=== PATIENT | female | born 1965 | race Caucasian/White ===

== ENCOUNTER 2017-11-07 18:11 | Emergency (ER) | payer BC, MEDICAID ==
--- NOTE | 2017-11-07 18:45 | Emergency Department Record ---
History of Present Illness - General Chief Complaint: Chest Pain Stated Complaint: CHEST PAIN Time Seen by Provider: 11/07/17 18:39 Source: Patient, RN notes reviewed - History of Present Illness Initial Comments: 2-3 days of intermittent chest pain and it is substernal and last for 10 minutes and it comes and goes and no diaphoresis and no indigestion. grabbing kind of pain. Patient presented via ambulance and given asa chewable 4 81 mg aspirin by EMS and nitrosublingual times one with some relief. history of spontaneous pneumo, Pain worse with palpation on the chest wall. chronic back pain and takes lyrica and percocet and flexeril for that. MD Complaint: Chest pain - Related Data Home Medications Medication Instructions Recorded Confirmed Last Taken Alendronate Sodium [Fosamax] 70 mg PO WEEKLY 11/07/17 11/07/17 Unknown Cyclobenzaprine HCl [Flexeril] 10 mg PO TID 11/07/17 11/07/17 Unknown Escitalopram Oxalate [Lexapro] 10 mg PO DAILY 11/07/17 11/07/17 Unknown Etodolac [Lodine] 400 mg PO DAILY 11/07/17 11/07/17 Unknown Meloxicam [Mobic] 15 mg PO DAILY 11/07/17 11/07/17 Unknown Montelukast Sodium [Singulair] 10 mg PO QHS 11/07/17 11/07/17 Unknown Oxybutynin Chloride [Ditropan] 5 mg PO DAILY 11/07/17 11/07/17 Unknown Oxycodone HCl/Acetaminophen 1 tab PO Q6H PRN 11/07/17 11/07/17 Unknown [Percocet 10mg/325mg] Pregabalin [Lyrica] 75 mg PO DAILY 11/07/17 11/07/17 Unknown Quetiapine Fumarate [Seroquel] 50 mg PO QHS 11/07/17 11/07/17 Unknown Allergies Allergy/AdvReac Type Severity Reaction Status Date / Time amoxicillin Allergy PT UNSURE Verified 11/07/17 19:06 OF REACTION diazepam [From Valium] Allergy PT UNSURE Verified 11/07/17 19:06 OF REACTION gabapentin [From Neurontin] Allergy PT UNSURE Verified 11/07/17 19:06 OF REACTION Penicillins Allergy PT UNSURE Verified 11/07/17 19:06 OF REACTION sulfamethoxazole Allergy PT UNSURE Verified 11/07/17 19:06 [From Bactrim] OF REACTION trimethoprim [From Bactrim] Allergy PT UNSURE Verified 11/07/17 19:06 OF REACTION Review of Systems Reviewed: No additional complaints except as noted below Constitutional: Reports: As per HPI. Denies: Chills, Fever, Malaise, Night sweats, Weakness, Weight change Eyes: Reports: As per HPI. Denies: Eye discharge, Eye pain, Photophobia, Vision change ENT: Reports: As per HPI. Denies: Congestion, Dental pain, Ear pain, Epistaxis , Hearing loss, Throat pain Respiratory: Reports: As per HPI. Denies: Cough, Dyspnea, Hemoptysis, Stridor, Wheezes Cardiovascular: Reports: As per HPI, Chest pain. Denies: Arrhythmia, Dyspnea on exertion, Edema, Murmurs, Orthopnea, Palpitations, Paroxysmal nocturnal dyspnea, Rheumatic Fever, Syncope Endocrine: Reports: As per HPI. Denies: Fatigue, Heat or cold intolerance, Polydipsia, Polyuria Gastrointestinal: Reports: As per HPI. Denies: Abdominal pain, Constipation, Diarrhea, Hematemesis, Hematochezia, Melena, Nausea, Vomiting Genitourinary: Reports: As per HPI. Denies: Abnormal menses, Discharge, Dyspareunia, Dysuria, Frequency, Hematuria, Incontinence, Retention, Urgency Musculoskeletal: Reports: As per HPI. Denies: Arthralgia, Back pain, Gout, Joint swelling, Myalgia, Neck pain Skin: Reports: As per HPI. Denies: Bruising, Change in color, Change in hair/ nails, Lesions, Pruritus, Rash Neurological: Reports: As per HPI. Denies: Abnormal gait, Confusion, Headache, Numbness, Paresthesias, Seizure, Tingling, Tremors, Vertigo, Weakness Psychiatric: Reports: As per HPI. Denies: Anxiety, Auditory hallucinations, Depression, Homicidal thoughts, Suicidal thoughts, Visual hallucinations Hematological/Lymphatic: Reports: As per HPI. Denies: Anemia, Blood Clots, Easy bleeding, Easy bruising, Swollen glands Physical Exam - General General Appearance: Alert, Oriented x3, Cooperative, No acute distress - Head Head exam: Normal inspection - Eye Eye exam: Normal appearance, PERRL Pupils: Normal accommodation - ENT ENT exam: Normal exam, Mucous membranes moist, Normal external ear exam, Normal orophraynx, TM's normal bilaterally Ear exam: Normal external inspection. negative: External canal tenderness Nasal Exam: Normal inspection. negative: Discharge, Sinus tenderness Mouth exam: Normal external inspection, Tongue normal Teeth exam: Normal inspection. negative: Dental caries Throat exam: Normal inspection. negative: Tonsillar erythema, Tonsillar exudate - Neck Neck exam: Normal inspection, Full ROM. negative: Tenderness - Respiratory Respiratory exam: Normal lung sounds bilaterally. negative: Respiratory distress - Cardiovascular Cardiovascular Exam: Regular rate, Normal rhythm, Normal heart sounds - GI/Abdominal GI/Abdominal exam: Soft, Normal bowel sounds. negative: Tenderness - Rectal Rectal exam: Deferred - exam: Deferred - Extremities Extremities exam: Normal inspection, Full ROM, Normal capillary refill. negative: Tenderness - Back Back exam: Reports: Normal inspection, Full ROM. Denies: Muscle spasm, Rash noted, Tenderness - Neurological Neurological exam: Alert, Normal gait, Oriented X3, Reflexes normal - Psychiatric Psychiatric exam: Normal affect, Normal mood - Skin Skin exam: Dry, Intact, Normal color, Warm Medical Decision Making - Data Complexity MDM Data: Labs Ordered and/or Reviewed, X-Ray Ordered and/or Reviewed (COPD no acute changes), EKG Ordered and/or Reviewed (no acute changes) - Lab Data Result diagrams: 11/07/17 18:20 11/07/17 18:20 Disposition Clinical Impression: Chest wall pain, Costochondritis, acute Chest pain Qualifiers: Chest pain type: unspecified Qualified Code(s): R07.9 - Chest pain, unspecified Disposition: Home, Self-Care Condition: (1) Good Instructions: Costochondritis (ED) Additional Instructions: follow up with family in 2 to 5 days heat to chest three times a day increase percocet to four times a day and she has this already and flexeril three times a day and she has that too. return if worse Forms: Patient Portal Access Time of Disposition: 20:59 Quality - Quality Measures Quality Measures: N/A - Blood Pressure Screening Does Patient Have Any of the Following: No Blood Pressure Classification: Normal BP Reading Systolic Measurement: 107 Diastolic Measurement: 70 Screening for High Blood Pressure: < Normal BP, F/U Not Required > [G8783]
[2017-11-07] MEDS ORDERED: LORAZEPAM 2 MG/ML VIAL IV ONE (18:56)
[2017-11-07] MEDS ORDERED: MAGNESIUM HYDROXIDE/AL HYDROX 30 ML, LIDOCAINE VISC 2% 200 MG PO ONE ×2 (18:56)
[2017-11-07 19:06] LABS: BASO % 0.1 % (0-6); EOS % 1.2 % (0-6); HEMOGLOBIN 11.4 gm/dl (11.6-16.0); LYMPH % 40.6 % (16-45); MEAN CELL VOLUME 96.4 fl (81-97); MEAN CORPUSCULAR HEMOGLOBIN 31.4 pg (27-33); MEAN CORPUSCULAR HGB CONC 32.6 g/dl (32-36); MEAN PLATELET VOLUME 9.8 fl (7.4-10.4); MONO % 6.1 % (0-9); PLATELET COUNT 230 K/uL (130-400); RED BLOOD COUNT 3.63 M/uL (3.80-5.40); RED CELL DISTRIBUTION WIDTH 14.2 % (11.5-14.5); WHITE BLOOD COUNT W/O DIFF 8.4 K/uL (4.2-12.2)
[2017-11-07 19:18] LABS: BLOOD UREA NITROGEN 16 mg/dL (6-20); CREATININE 0.9 mg/dL (0.5-0.9); EST GLOMERULAR FILTRATION RATE > 60 mL/min; GLUCOSE,RANDOM 87 mg/dL (74-109)
[2017-11-07 19:22] LABS: CKMB 1.6 ng/mL (<3.77)
[2017-11-07 19:23] LABS: PARTIAL THROMBOPLASTIN TIME 22.9 SECONDS (24.5-39.1)
[2017-11-07] MEDS ORDERED: KETOROLAC 30 MG/ML VIAL IVP ONE (19:50)
--- NOTE | 2017-11-08 20:24 | RADIOLOGY REPORT ---
EXAM: CHEST 2 VIEWS HISTORY: DIFFICULTY IN BREATHING. TECHNIQUE: Frontal and lateral views of the chest were performed. FINDINGS: Heart size is normal. Lungs are hyperinflated. Post-op surgical change right lung apex. No superimposed infiltrate or pleural effusion. IMPRESSION: HYPERINFLATED LUNGS. POST-OP SURGICAL CHANGE IN THE RIGHT LUNG APEX. NO INFILTRATE OR PLEURAL EFFUSION. JOB NUMBER: [id number] MTDD
== END 2017-11-07 21:24 | disposition home or self-care (01) ==
LOC: ER 18:11 → EDBD 18:11 → ER 21:24
DX: M94.0 Chondrocostal junction syndrome [Tietze] (principal); R07.89 Other chest pain; M79.601 Pain in right arm; R51 Headache; J44.9 Chronic obstructive pulmonary disease, unspecified; F17.210 Nicotine dependence, cigarettes, uncomplicated
CPT/HCPCS: 71046; 80048; 82553; 84484; 85025; 85379; 85730; 93005; 93010; 96374; 96375; 99284; J1885

== ENCOUNTER 2019-04-04 20:57 | Emergency (ER) | payer BC, MEDICAID ==
[2019-04-04] MEDS ORDERED: AZITHROMYCIN 500 MG TABLET PO ONE (21:19)
[2019-04-04] MEDS ORDERED: PREDNISONE 20 MG TAB PO ONE (21:19)
--- NOTE | 2019-04-04 21:20 | Emergency Department Record ---
History of Present Illness - General Chief Complaint: Cough Stated Complaint: COUGH Time Seen by Provider: 04/04/19 21:01 Source: Patient Mode of Arrival: Ambulatory Limitations: No limitations - History of Present Illness Initial Comments: 54 yo female presents to ED for evaluation of non-productive cough symptoms for the past several days. Patient denies fevers, chills, or productive cough symptoms. Patient reports headache symptoms related to her cough symptoms. Patient reports similar symptoms previously related to bronchitis, reports history of COPD that she uses singulair and albuterol for at home. MD Complaint: Cough Onset/Timin -: Days(s) Severity: Moderate Consistency: Constant Improves With: Nothing Worsens With: Nothing Associated Symptoms: Headache Treatments Prior to Arrival: Other - Related Data Home Medications Medication Instructions Recorded Confirmed Last Taken Buspirone HCl [Buspar] 7.5 mg PO DAILY 04/04/19 04/04/19 Unknown Levocetirizine Dihydrochloride 5 mg PO DAILY 04/04/19 04/04/19 Unknown [Xyzal] Oxycodone HCl/Acetaminophen 1 tab PO QID PRN 04/04/19 04/04/19 Unknown [Percocet 7.5mg/325mg] Previous Rx's Medication Instructions Recorded Azithromycin [Zithromax] 250 mg PO DAILY #4 tablet 04/04/19 Prednisone [Prednisone 20Mg] 20 mg PO TID #12 tab 04/04/19 Allergies Allergy/AdvReac Type Severity Reaction Status Date / Time amoxicillin Allergy PT UNSURE Verified 11/07/17 19:06 OF REACTION diazepam [From Valium] Allergy PT UNSURE Verified 11/07/17 19:06 OF REACTION gabapentin [From Neurontin] Allergy PT UNSURE Verified 11/07/17 19:06 OF REACTION Penicillins Allergy PT UNSURE Verified 11/07/17 19:06 OF REACTION sulfamethoxazole Allergy PT UNSURE Verified 11/07/17 19:06 [From Bactrim] OF REACTION trimethoprim [From Bactrim] Allergy PT UNSURE Verified 11/07/17 19:06 OF REACTION Review of Systems Constitutional: Denies: Chills, Fever, Malaise, Night sweats Eyes: Denies: Eye discharge, Eye pain ENT: Denies: Congestion, Ear pain, Epistaxis Respiratory: Reports: Cough. Denies: Dyspnea Cardiovascular: Denies: Chest pain, Dyspnea on exertion Endocrine: Denies: Fatigue, Heat or cold intolerance Gastrointestinal: Denies: Abdominal pain, Nausea, Vomiting Genitourinary: Denies: Hematuria, Incontinence, Retention Musculoskeletal: Denies: Arthralgia, Back pain Skin: Denies: Bruising, Change in color Neurological: Denies: Abnormal gait, Confusion, Headache, Seizure Psychiatric: Denies: Anxiety Hematological/Lymphatic: Denies: Anemia, Blood Clots Past Medical History - SOCIAL HISTORY Smoking Status: Current every day smoker Drug Use: None - RESPIRATORY Hx Respiratory Disorders: Yes Hx Asthma: Yes Hx COPD: Yes Comment:: spontaneous pneumo - CARDIOVASCULAR Hx Cardio Disorders: No - NEURO Hx Neuro Disorders: Yes Hx Headaches: Yes - GI Hx GI Disorders: Yes Hx Irritable Bowel: Yes - Hx Genitourinary Disorders: Yes Hx Bladder Problem: Yes (overactive) - ENDOCRINE Hx Endocrine Disorders: No - MUSCULOSKELETAL Hx Musculoskeletal Disorders: Yes Hx Arthritis: Yes - PSYCH Hx Psych Problems: Yes Hx Anxiety: Yes - HEMATOLOGY/ONCOLOGY Hx Hematology/Oncology Disorders: No Physical Exam - General General Appearance: Alert, Oriented x3, Cooperative, No acute distress Limitations: No limitations - Head Head exam: Atraumatic, Normocephalic, Normal inspection Head exam detail: negative: Abrasion, Contusion, Chapa's sign, General tenderness, Hematoma, Laceration - Eye Eye exam: Normal appearance. negative: Conjunctival injection, Periorbital swelling, Periorbital tenderness, Scleral icterus - ENT Ear exam: negative: Auricular hematoma, Auricular trauma Nasal Exam: negative: Active bleeding, Discharge, Dried blood, Foreign body Mouth exam: negative: Drooling, Laceration, Muffled voice, Tongue elevation - Neck Neck exam: Normal inspection. negative: Meningismus, Tenderness - Respiratory Respiratory exam: Normal lung sounds bilaterally, Other (Nonproductive cough symptoms are present on examination.). negative: Rales, Respiratory distress, Rhonchi, Stridor - Cardiovascular Cardiovascular Exam: Regular rate, Normal rhythm, Normal heart sounds - GI/Abdominal GI/Abdominal exam: Soft. negative: Rebound, Rigid, Tenderness - Rectal Rectal exam: Deferred - exam: Deferred - Extremities Extremities exam: Normal inspection. negative: Pedal edema, Tenderness - Back Back exam: Denies: CVA tenderness (R), CVA tenderness (L) - Neurological Neurological exam: Alert, Normal gait, Oriented X3 - Psychiatric Psychiatric exam: Normal affect, Normal mood - Skin Skin exam: Normal color. negative: Abrasion Type of lesion: negative: abrasion Course Vital Signs 04/04/19 21:14 Temperature 98.8 F Pulse Rate [ 69 Right] Respiratory 18 Rate Blood Pressure 137/65 [Left Arm] Pulse Ox 97 - Reevaluation(s) Reevaluation #1: 04/04/19 21:24 Patient's symptoms and examination appear c/w acute bronchitis. Will treat with Zithromax and Predsnisone as directed. Patient's vital signs appear stable on examination, and patient appears stable for discharge at this time. Disposition Disposition: Discharge Clinical Impression: Acute bronchitis Qualifiers: Bronchitis organism: unspecified organism Qualified Code(s): J20.9 - Acute br onchitis, unspecified Disposition: Home, Self-Care Condition: (2) Stable Instructions: Acute Bronchitis (ED) Additional Instructions: Return to ED if your symptoms worsen or if you have any concerns. Prednisone, Zithromax as directed. Follow-up with your family doctor in 3-5 days as directed. Prescriptions: Prednisone [Prednisone 20Mg] 20 mg PO TID #12 tab Azithromycin [Zithromax] 250 mg PO DAILY #4 tablet Forms: Patient Portal Access Time of Disposition: 21:18 Quality - Quality Measures Quality Measures: N/A, Adult Bronchitis (18-64yr) - Adult Bronchitis Quality Measure: Measure #116: Avoidance of ABX w/Adult Bronchitis ICD10 Codes Entered: Yes Is patient being admitted: No Avoidance of ABX w/Bronchitis: Medical Reason for prescribing ABX [G9712] Medical Reason For Rx: Chronic bronchitis - Blood Pressure Screening Does Patient Have Any of the Following: No Blood Pressure Classification: Pre-Hypertensive BP Reading Systolic Measurement: 137 Diastolic Measurement: 65 Screening for High Blood Pressure: < Pre-Hypertensive BP, F/U Documented > [G8950] Pre-Hypertensive Follow-up Interventions: Referral to alternative/primary care provider.
== END 2019-04-04 21:35 | disposition home or self-care (01) ==
LOC: ER 20:57
DX: J20.9 Acute bronchitis, unspecified (principal); R51 Headache; J44.9 Chronic obstructive pulmonary disease, unspecified; F17.210 Nicotine dependence, cigarettes, uncomplicated
CPT/HCPCS: 99282; J7512

== ENCOUNTER 2019-05-17 20:26 | Emergency (ER) | payer BC, MEDICAID ==
[2019-05-17] MEDS ORDERED: AZITHROMYCIN 500 MG TABLET PO ONE (20:46)
[2019-05-17] MEDS ORDERED: METHYLPREDNISOLONE 80MG/VIAL IM ONE (20:46)
--- NOTE | 2019-05-17 20:52 | Emergency Department Record ---
History of Present Illness - General Chief Complaint: Cough Stated Complaint: URI Time Seen by Provider: 05/17/19 20:40 Source: Patient Mode of Arrival: Ambulatory Limitations: No limitations - History of Present Illness Initial Comments: 54 yo female presents with a productive cough for 2 weeks. She has not seen the sputum but can feel it. No fever. No chills. No shortness or breath or chest pain. She is a smoker with COPD/chronic bronchitis. No hemoptysis. No edema. No other abrupts changes in her health. MD Complaint: Cough, Nasal congestion Onset/Timin -: Week(s) Severity: Moderate Quality: Other Consistency: Constant Improves With: Nothing Worsens With: Other (cough) Context: Other (smoker) Associated Symptoms: Cough - Related Data Previous Rx's Medication Instructions Recorded Azithromycin [Zithromax] 250 mg PO DAILY #4 tab 05/17/19 Methylprednisolone [Medrol Dose 4 mg PO DAILY #1 tab.ds.pk 05/17/19 Pack] Allergies Allergy/AdvReac Type Severity Reaction Status Date / Time amoxicillin Allergy PT UNSURE Verified 11/07/17 19:06 OF REACTION diazepam [From Valium] Allergy PT UNSURE Verified 11/07/17 19:06 OF REACTION gabapentin [From Neurontin] Allergy PT UNSURE Verified 11/07/17 19:06 OF REACTION Penicillins Allergy PT UNSURE Verified 11/07/17 19:06 OF REACTION sulfamethoxazole Allergy PT UNSURE Verified 11/07/17 19:06 [From Bactrim] OF REACTION trimethoprim [From Bactrim] Allergy PT UNSURE Verified 11/07/17 19:06 OF REACTION Travel Screening - Travel/Exposure Within Last 30 Days Have you traveled within the last 30 days?: No - Travel Symptoms Symptom Screening: None Review of Systems Constitutional: Denies: Chills, Fever, Malaise, Weakness Eyes: Denies: Eye discharge, Eye pain, Photophobia, Vision change ENT: Reports: Congestion. Denies: Ear pain, Throat pain Respiratory: Reports: Cough, Dyspnea, Wheezes. Denies: Hemoptysis Cardiovascular: Denies: Chest pain, Palpitations, Syncope Endocrine: Denies: Fatigue, Polydipsia, Polyuria Gastrointestinal: Denies: Abdominal pain, Diarrhea, Nausea, Vomiting Genitourinary: Denies: Dysuria, Frequency, Hematuria, Urgency Musculoskeletal: Denies: Arthralgia, Back pain, Neck pain Skin: Denies: Bruising, Change in color, Rash Neurological: Denies: Confusion Psychiatric: Denies: Anxiety Hematological/Lymphatic: Denies: Easy bleeding, Easy bruising Past Medical History - SOCIAL HISTORY Smoking Status: Current every day smoker Alcohol Use: None Drug Use: None - RESPIRATORY Hx Respiratory Disorders: Yes Hx Asthma: Yes Hx COPD: Yes Comment:: spontaneous pneumo - CARDIOVASCULAR Hx Cardio Disorders: No - NEURO Hx Neuro Disorders: Yes Hx Headaches: Yes - GI Hx GI Disorders: Yes Hx Irritable Bowel: Yes - Hx Genitourinary Disorders: Yes Hx Bladder Problem: Yes (overactive) - ENDOCRINE Hx Endocrine Disorders: No - MUSCULOSKELETAL Hx Musculoskeletal Disorders: Yes Hx Arthritis: Yes - PSYCH Hx Psych Problems: Yes Hx Anxiety: Yes - HEMATOLOGY/ONCOLOGY Hx Hematology/Oncology Disorders: No Family Medical History Any Significant Family History?: No Family Hx Comment (NOT TO BE USED IN PLACE OF ITEMS BELOW): denies Physical Exam - General General Appearance: Alert, Oriented x3, Cooperative, No acute distress Limitations: No limitations - Head Head exam: Atraumatic, Normal inspection - Eye Eye exam: Normal appearance, PERRL. negative: Conjunctival injection, Scleral icterus - ENT ENT exam: Normal exam, Mucous membranes moist Ear exam: Normal external inspection Nasal Exam: Normal inspection Mouth exam: Normal external inspection Teeth exam: Normal inspection Throat exam: Normal inspection. negative: Tonsillar erythema, Tonsillomegaly, Tonsillar exudate, R peritonsillar mass, L peritonsillar mass - Neck Neck exam: Normal inspection, Full ROM. negative: Lymphadenopathy, Meningismus, Tenderness - Respiratory Respiratory exam: Rhonchi. negative: Accessory muscle use, Chest wall tenderness, Decreased breath sounds, Prolonged expiratory, Respiratory distress, Stridor, Wheezes - Cardiovascular Cardiovascular Exam: Regular rate, Normal rhythm, Normal heart sounds - Rectal Rectal exam: Deferred - exam: Deferred - Extremities Extremities exam: Normal inspection. negative: Pedal edema, Tenderness - Back Back exam: Denies: CVA tenderness (R), CVA tenderness (L) - Neurological Neurological exam: Alert, Oriented X3 - Psychiatric Psychiatric exam: Normal affect, Normal mood - Skin Skin exam: Dry, Intact, Normal color, Warm Course Vital Signs 05/17/19 20:37 Temperature 98.9 F Pulse Rate [ 84 Left] Respiratory 16 Rate Blood Pressure 100/74 [Left] Pulse Ox 97 - Reevaluation(s) Reevaluation #1: 05/17/19 20:49 Vitals reviewed No fever or hypoxia Disposition Disposition: Discharge Clinical Impression: Chronic bronchitis Qualifiers: Chronic bronchitis type: unspecified Qualified Code(s): J42 - Unspecified chronic bronchitis Disposition: Home, Self-Care Condition: (1) Good Instructions: Chronic Bronchitis (ED) Additional Instructions: Call your doctor for the next available follow up appointment Return to the ER for a recheck if worse, any new concerns or questions Take the prescriptions provided as directed Prescriptions: Methylprednisolone [Medrol Dose Pack] 4 mg PO DAILY #1 tab.ds.pk Azithromycin [Zithromax] 250 mg PO DAILY #4 tab Forms: Patient Portal Access Time of Disposition: 20:52 Quality - Quality Measures Quality Measures: Adult Bronchitis (18-64yr) - Adult Bronchitis Quality Measure: Measure #116: Avoidance of ABX w/Adult Bronchitis ICD10 Codes Entered: Yes Is patient being admitted: No Avoidance of ABX w/Bronchitis: <ABX neither prescribed nor dispensed> [4124F] Medical Reason For Rx: Chronic bronchitis, Chronic obstructive asthma - Blood Pressure Screening Does Patient Have Any of the Following: No Blood Pressure Classification: Normal BP Reading Systolic Measurement: 100 Diastolic Measurement: 74 Screening for High Blood Pressure: < Normal BP, F/U Not Required > [G8783]
== END 2019-05-17 21:06 | disposition home or self-care (01) ==
LOC: ER 20:26
DX: J44.0 Chronic obstructive pulmonary disease with (acute) lower respiratory infection (principal); F17.210 Nicotine dependence, cigarettes, uncomplicated
CPT/HCPCS: 96372; 99283; 99284; J1040

== ENCOUNTER 2019-05-28 18:07 | Emergency (ER) | payer BC, MEDICAID ==
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
[2019-05-28 19:29] LABS: BLOOD UREA NITROGEN 16 mg/dL (6-20)
[2019-05-28 19:30] LABS: CREATININE 0.9 mg/dL (0.5-0.9); EST GLOMERULAR FILTRATION RATE > 60 mL/min
[2019-05-28 19:32] LABS: GLUCOSE,RANDOM 92 mg/dL (74-109)
--- NOTE | 2019-05-30 14:29 | RADIOLOGY REPORT ---
EXAM: CHEST, TWO VIEWS HISTORY: PALPITATIONS. TECHNIQUE: Two views of the chest were obtained. Comparison: 11/07/17. FINDINGS: The cardiomediastinal silhouette is normal in size. The pulmonary vasculature is not congested. Surgical changes are noted in the right upper lung. There is biapical pleural and parenchymal scarring. No focal consolidation, pleural effusion, or pneumothorax is evident. IMPRESSION: NO EVIDENCE FOR PNEUMONIA OR PULMONARY EDEMA. JOB NUMBER: [id number] MTDD
== END 2019-05-28 20:23 | disposition home or self-care (01) ==
LOC: ER 18:07
DX: R00.2 Palpitations (principal); F17.210 Nicotine dependence, cigarettes, uncomplicated
CPT/HCPCS: 71046; 80048; 83735; 93005; 93010; 99284

== ENCOUNTER 2019-10-29 20:10 | Emergency (ER) | payer BC ==
--- NOTE | 2019-10-29 20:33 | Emergency Department Record ---
History of Present Illness - General Chief complaint: Flu Like Symptoms Stated complaint: COUGH,LOSS OF APPETITE,LIGHT HEADED Time Seen by Provider: 10/29/19 20:11 Source: Patient Mode of Arrival: Ambulatory Limitations: No limitations - History of Present Illness Initial comments: 54 yo female presents to ED for evaluation of non-productive cough symptoms, body aches, and fatigue for the past 4 days. Patient denies sore throat or fever symptoms, reports that she did receive an influenza vaccination this year. Patient is a current smoker, does report previous episodes of bronchitis. Patient denies formal history of asthma/COPD. Patient reports that she has been exposed to numerous ill contacts at work. MD Complaint: Generalized weakness Onset/Timin -: Days(s) Quality: Aching Consistency: Intermittent Improves with: None Worsens with: None Associated Symptoms: Denies other symptoms - [place] Coma Scale Eye Response: (4) Open spontaneously Motor Response: (6) Obeys commands Verbal Response: (5) Oriented [place] Total: 15 - Related Data Previous Rx's Medication Instructions Recorded Doxycycline Hyclate 100 mg PO BID #14 cap 10/29/19 Prednisone [Prednisone 20Mg] 20 mg PO BID #12 tab 10/29/19 Allergies Allergy/AdvReac Type Severity Reaction Status Date / Time amoxicillin Allergy PT UNSURE Verified 10/29/19 20:21 OF REACTION diazepam [From Valium] Allergy PT UNSURE Verified 10/29/19 20:21 OF REACTION gabapentin [From Neurontin] Allergy PT UNSURE Verified 10/29/19 20:21 OF REACTION Penicillins Allergy PT UNSURE Verified 10/29/19 20:21 OF REACTION sulfamethoxazole Allergy PT UNSURE Verified 10/29/19 20:21 [From Bactrim] OF REACTION trimethoprim [From Bactrim] Allergy PT UNSURE Verified 10/29/19 20:21 OF REACTION Travel Screening - Travel/Exposure Within Last 30 Days Have you traveled within the last 30 days?: No - Travel/Exposure Within Last Year Have you traveled outside the [place] in the last year?: No - Additonal Travel Details Have you been exposed to anyone with a communicable illness?: No - Travel Symptoms Symptom Screening: None Review of Systems Constitutional: Reports: Malaise, Weakness. Denies: Chills, Fever, Night sweats Eyes: Denies: Eye discharge, Eye pain ENT: Reports: Congestion. Denies: Ear pain, Epistaxis Respiratory: Reports: Cough. Denies: Dyspnea Cardiovascular: Denies: Chest pain, Dyspnea on exertion Endocrine: Reports: Fatigue. Denies: Heat or cold intolerance Gastrointestinal: Denies: Abdominal pain, Nausea, Vomiting Genitourinary: Denies: Incontinence, Retention Musculoskeletal: Reports: Myalgia. Denies: Arthralgia, Back pain Skin: Denies: Bruising, Change in color Neurological: Reports: Vertigo ("feels dizzy"). Denies: Abnormal gait, Confusion, Headache, Seizure Psychiatric: Denies: Anxiety Hematological/Lymphatic: Denies: Anemia, Blood Clots Past Medical History - SOCIAL HISTORY Smoking Status: Current every day smoker Alcohol Use: None Drug Use: None - RESPIRATORY Hx Respiratory Disorders: Yes Hx Asthma: Yes Hx COPD: Yes Comment:: spontaneous pneumo - CARDIOVASCULAR Hx Cardio Disorders: No - NEURO Hx Neuro Disorders: Yes Hx Headaches: Yes - GI Hx GI Disorders: Yes Hx Irritable Bowel: Yes - Hx Genitourinary Disorders: Yes Hx Bladder Problem: Yes (overactive) - ENDOCRINE Hx Endocrine Disorders: No - MUSCULOSKELETAL Hx Musculoskeletal Disorders: Yes Hx Arthritis: Yes - PSYCH Hx Psych Problems: Yes Hx Anxiety: Yes - HEMATOLOGY/ONCOLOGY Hx Hematology/Oncology Disorders: No Family Medical History Any Significant Family History?: No Family Hx Comment (NOT TO BE USED IN PLACE OF ITEMS BELOW): denies Physical Exam - General General Appearance: Alert, Oriented x3, Cooperative, Mild distress Limitations: No limitations - Head Head exam: Atraumatic, Normocephalic, Normal inspection Head exam detail: negative: Abrasion, Contusion, Chapa's sign, General tenderness, Hematoma, Laceration - Eye Eye exam: Normal appearance. negative: Conjunctival injection, Periorbital swelling, Periorbital tenderness, Scleral icterus - ENT ENT exam: Normal orophraynx Ear exam: negative: Auricular hematoma, Auricular trauma Nasal Exam: negative: Active bleeding, Discharge, Dried blood, Foreign body Mouth exam: negative: Drooling, Laceration, Muffled voice, Tongue elevation Throat exam: Normal inspection. negative: Tonsillar erythema, Tonsillomegaly, R peritonsillar mass, L peritonsillar mass - Neck Neck exam: Normal inspection. negative: Meningismus, Tenderness - Respiratory Respiratory exam: Normal lung sounds bilaterally, Other (Coarse non-productive cough is present on examination). negative: Rales, Respiratory distress, Rhonchi, Stridor, Wheezes - Cardiovascular Cardiovascular Exam: Regular rate, Normal rhythm, Normal heart sounds - GI/Abdominal GI/Abdominal exam: Soft. negative: Rebound, Rigid, Tenderness - Rectal Rectal exam: Deferred - exam: Deferred - Extremities Extremities exam: Normal inspection. negative: Pedal edema, Tenderness - Back Back exam: Denies: CVA tenderness (R), CVA tenderness (L) - Neurological Neurological exam: Alert, Normal gait, Oriented X3 - Psychiatric Psychiatric exam: Normal affect, Normal mood - Skin Skin exam: Normal color. negative: Abrasion Type of lesion: negative: abrasion Course Vital Signs 10/29/19 20:15 Temperature 98.8 F Pulse Rate 94 H Respiratory 24 Rate Blood Pressure 139/85 Pulse Ox 97 - Reevaluation(s) Reevaluation #1: 10/29/19 21:26 Influenza: Negative Patient was updated on her result, will treat for acute bronchitis Will prescribe Doxycycline and Prednisone for the patient's symptoms. Patient appears stable for discharge at this time. Disposition Disposition: Discharge Clinical Impression: Acute bronchitis Qualifiers: Bronchitis organism: unspecified organism Qualified Code(s): J20.9 - Acute bronchitis, unspecified Disposition: Home, Self-Care Condition: (2) Stable Instructions: Acute Bronchitis (ED) Additional Instructions: Return to ED if your symptoms worsen or if you have any concerns. Doxycyline and Prednisone as directed. Follow-up with your family doctor in 3-5 days as directed. Prescriptions: Doxycycline Hyclate 100 mg PO BID #14 cap Prednisone [Prednisone 20Mg] 20 mg PO BID #12 tab Forms: Patient Portal Access Time of Disposition: 21:28 Quality - Quality Measures Quality Measures: N/A, Adult Bronchitis (18-64yr) - Adult Bronchitis Quality Measure: Measure #116: Avoidance of ABX w/Adult Bronchitis ICD10 Codes Entered: Yes Is patient being admitted: No Avoidance of ABX w/Bronchitis: ABX prescribed or dispensed Medical Reason For Rx: Chronic bronchitis - Blood Pressure Screening Does Patient Have Any of the Following: No Blood Pressure Classification: Pre-Hypertensive BP Reading Systolic Measurement: 139 Diastolic Measurement: 85 Screening for High Blood Pressure: < Pre-Hypertensive BP, F/U Documented > [G8950] Pre-Hypertensive Follow-up Interventions: Referral to alternative/primary care provider.
[2019-10-29 21:20] LABS: INFLUENZA A NEGATIVE (NEGATIVE); INFLUENZA B NEGATIVE (NEGATIVE)
== END 2019-10-29 21:39 | disposition home or self-care (01) ==
LOC: ER 20:10
DX: J02.9 Acute pharyngitis, unspecified (principal); F17.210 Nicotine dependence, cigarettes, uncomplicated; R42 Dizziness and giddiness; R53.1 Weakness
CPT/HCPCS: 87400; 99283

== ENCOUNTER 2019-11-16 19:53 | Emergency (ER) | payer BC ==
--- NOTE | 2019-11-16 20:00 | Emergency Department Record ---
History of Present Illness - General Stated Complaint: FEVER,COUGH Time Seen by Provider: 11/16/19 19:53 Source: Patient Mode of Arrival: Ambulatory Limitations: No limitations - History of Present Illness Initial Comments: 54 yo female presents with cough, congestion, subjective fevers and chills. She reports she did have the Influenza vaccination this year. She also reports she is a smoker but denies any underlying heart disease. She does have asthma. She was evaluated about 3-4 weeks ago with similar symptoms. She did state she did not fill her antibiotic or steroid that she was prescribed but got better. She felt worse the last 2 days. SO has tested positive for influenza. No rash. No vomiting or diarrhea. No chest or abdominal pain. MD Complaint: Cough, Fever -: Days(s) Severity: Moderate Quality: Aching Consistency: Constant Improves With: Nothing Worsens With: Other (cough) Associated Symptoms: Cough, Fever Treatments Prior to Arrival: Other - Related Data Previous Rx's Medication Instructions Recorded Doxycycline Hyclate 100 mg PO BID #14 cap 10/29/19 Azithromycin [Zithromax] 250 mg PO DAILY #4 tablet 11/16/19 Methylprednisolone [Medrol Dose 4 mg PO DAILY #1 tab.ds.pk 11/16/19 Pack] Allergies Allergy/AdvReac Type Severity Reaction Status Date / Time amoxicillin Allergy PT UNSURE Verified 11/16/19 19:57 OF REACTION diazepam [From Valium] Allergy PT UNSURE Verified 11/16/19 19:57 OF REACTION gabapentin [From Neurontin] Allergy PT UNSURE Verified 11/16/19 19:57 OF REACTION Penicillins Allergy PT UNSURE Verified 11/16/19 19:57 OF REACTION sulfamethoxazole Allergy PT UNSURE Verified 11/16/19 19:57 [From Bactrim] OF REACTION trimethoprim [From Bactrim] Allergy PT UNSURE Verified 11/16/19 19:57 OF REACTION Review of Systems Constitutional: Reports: Chills, Fever Eyes: Denies: Eye discharge ENT: Reports: Congestion Respiratory: Reports: Cough, Dyspnea. Denies: Stridor, Wheezes Cardiovascular: Denies: Chest pain, Palpitations, Syncope Endocrine: Denies: Fatigue, Polydipsia, Polyuria Gastrointestinal: Denies: Abdominal pain, Diarrhea, Nausea, Vomiting Genitourinary: Denies: Dysuria, Urgency Musculoskeletal: Denies: Arthralgia, Back pain, Myalgia Skin: Denies: Bruising, Change in color, Rash Neurological: Denies: Confusion, Headache, Weakness Psychiatric: Denies: Anxiety Hematological/Lymphatic: Denies: Easy bleeding, Easy bruising Past Medical History - SOCIAL HISTORY Smoking Status: Current every day smoker Drug Use: None - RESPIRATORY Hx Respiratory Disorders: Yes Hx Asthma: Yes Hx COPD: Yes Comment:: spontaneous pneumo - CARDIOVASCULAR Hx Cardio Disorders: No - NEURO Hx Neuro Disorders: Yes Hx Headaches: Yes - GI Hx GI Disorders: Yes Hx Irritable Bowel: Yes - Hx Genitourinary Disorders: Yes Hx Bladder Problem: Yes (overactive) - ENDOCRINE Hx Endocrine Disorders: No - MUSCULOSKELETAL Hx Musculoskeletal Disorders: Yes Hx Arthritis: Yes - PSYCH Hx Psych Problems: Yes Hx Anxiety: Yes - HEMATOLOGY/ONCOLOGY Hx Hematology/Oncology Disorders: No Family Medical History Family Hx Comment (NOT TO BE USED IN PLACE OF ITEMS BELOW): denies Physical Exam - General General Appearance: Alert, Oriented x3, Cooperative, No acute distress Limitations: No limitations - Head Head exam: Atraumatic, Normal inspection - Eye Eye exam: Normal appearance, PERRL. negative: Conjunctival injection, Scleral icterus - ENT ENT exam: Normal exam, Mucous membranes moist Ear exam: Normal external inspection Nasal Exam: Normal inspection Mouth exam: Normal external inspection Throat exam: Normal inspection. negative: Tonsillar erythema, Tonsillomegaly, Tonsillar exudate, R peritonsillar mass, L peritonsillar mass - Neck Neck exam: Normal inspection, Full ROM. negative: Lymphadenopathy - Respiratory Respiratory exam: Other (Non labored). negative: Accessory muscle use, Decreased breath sounds, Prolonged expiratory, Respiratory distress, Rhonchi, Stridor, Wheezes - Cardiovascular Cardiovascular Exam: Regular rate, Normal rhythm, Normal heart sounds - GI/Abdominal GI/Abdominal exam: Soft. negative: Tenderness - Rectal Rectal exam: Deferred - exam: Deferred - Extremities Extremities exam: Normal inspection. negative: Calf tenderness, Pedal edema, Tenderness - Back Back exam: Denies: CVA tenderness (R), CVA tenderness (L) - Neurological Neurological exam: Alert, Normal gait, Oriented X3. negative: Abnormal gait - Psychiatric Psychiatric exam: Normal affect, Normal mood. negative: Agitated, Anxious - Skin Skin exam: Dry, Intact, Normal color, Warm Course - Reevaluation(s) Reevaluation #1: No fever, tachycardia or hypoxia She has a normal work of breathing RR at time of my exam was 18 11/16/19 20:24 The Influenza are negative She will be treated given her underlying lung disease with Zithromax and Prednisone She was urged to return if worse, stop smoking, and have close follow up with her PCP Disposition Disposition: Discharge Clinical Impression: Acute bronchitis Qualifiers: Bronchitis organism: unspecified organism Qualified Code(s): J20.9 - Acute bronchitis, unspecified Disposition: Home, Self-Care Condition: (1) Good Instructions: Acute Bronchitis (ED) Additional Instructions: Review this ER visit and the tests performed with your family doctor Call your doctor for the next available follow up appointment Return to the ER for a recheck immediately if worse, any new concerns or questions Take the prescriptions provided as directed Prescriptions: Methylprednisolone [Medrol Dose Pack] 4 mg PO DAILY #1 tab.ds.pk Azithromycin [Zithromax] 250 mg PO DAILY #4 tablet Forms: Patient Portal Access Time of Disposition: 20:23 Quality - Quality Measures Quality Measures: Adult Bronchitis (18-64yr) - Adult Bronchitis Quality Measure: Measure #116: Avoidance of ABX w/Adult Bronchitis ICD10 Codes Entered: Yes Is patient being admitted: No Avoidance of ABX w/Bronchitis: Medical Reason for prescribing ABX [G9712] Medical Reason For Rx: Bacterial infection, Chronic bronchitis - Blood Pressure Screening Does Patient Have Any of the Following: No Blood Pressure Classification: Pre-Hypertensive BP Reading Systolic Measurement: 114 Diastolic Measurement: 80 Screening for High Blood Pressure: < Pre-Hypertensive BP, F/U Documented > [G8950] Pre-Hypertensive Follow-up Interventions: Referral to alternative/primary care provider.
[2019-11-16] MEDS ORDERED: PREDNISONE 20 MG TAB PO ONE (20:10)
[2019-11-16 20:20] LABS: INFLUENZA A NEGATIVE (NEGATIVE); INFLUENZA B NEGATIVE (NEGATIVE)
[2019-11-16] MEDS ORDERED: AZITHROMYCIN 250 MG TABLET PO ONE (20:22)
== END 2019-11-16 20:31 | disposition home or self-care (01) ==
LOC: ER 19:53
DX: J20.9 Acute bronchitis, unspecified (principal); F17.210 Nicotine dependence, cigarettes, uncomplicated; J44.9 Chronic obstructive pulmonary disease, unspecified
CPT/HCPCS: 87400; 99283; J7512